=== PATIENT | female | born 1960 | race Caucasian/White ===

== ENCOUNTER 2016-08-13 10:17 | Emergency (ER) | payer SELFPAY ==
[~2016-08-13] VITALS: Ht 167.6 cm; Wt 62.6 kg
[2016-08-13 10:17] VITALS: Ht 167.6 cm; Wt 62.6 kg
[~2016-08-13 10:17] MED LIST: ARIP5TAB10 PO; CLON-202 PO; CLOP75TA33 PO; CYAN10009 PO; HYDR-4246 PO; TRAZ-173 PO; VORT5TAB PO
[2016-08-13] MEDS ORDERED: NITROGLYCERIN 0.4 MG SUBLINGUAL TABLET SL PRN (10:30)
[2016-08-13 10:34] LABS: HCT - HEMATOCRIT 46.3 % (36-46); HGB - HEMOGLOBIN 14.7 GM/DL (12-16); MEAN CORPUSCULAR HGB 23.3 UUG (26-34); MEAN CORPUSCULAR HGB CONC(MCHC 31.7 GM/DL (31-37); MEAN CORPUSCULAR VOLUME 73.3 UM3 (80-100); MEAN PLATELET VOLUME 10.3 UM3 (9.4-12.4); RED BLOOD COUNT 6.32 M/MM3 (4.00-5.20); WBC - WHITE BLOOD COUNT 12.3 T/MM3 (4.5-11.0)
[2016-08-13 10:44] LABS: INR 0.96 (0.76-1.04); PROTHROMBIN TIME 10.5 SEC (9.31-12.49)
--- NOTE | 2016-08-13 10:45 | NUR ---
DR SERRA IN
--- NOTE | 2016-08-13 10:45 | NUR ---
PAIN NO CHANGE WITH NTG. BP DROPPED. WILL NOT REPEAT NTG
[2016-08-13] MEDS ORDERED: CLON1TAB4 PO ×2 (10:47)
[2016-08-13 10:48] LABS: ANION GAP 15 MEQ/L (5-15); BUN/CREATININE RATIO 17 RATIO (6-26); CALCIUM 9.1 MG/DL (8.4-10.2); CHLORIDE 106 MEQ/L (98-107); CO2 - CARBON DIOXIDE 25 MEQ/L (22-30); CREATININE 0.6 MG/DL (0.7-1.2); GLOMERULAR FILTRATION RATE 103; GLUCOSE 98 MG/DL (65-110); POTASSIUM 4.1 MEQ/L (3.6-5); SODIUM 146 MEQ/L (134-144)
[2016-08-13] MEDS ORDERED: CARI3CAP PO (10:48)
[2016-08-13] MEDS ORDERED: LAMO100T12 PO (10:48)
--- NOTE | 2016-08-13 10:51 | DI ---
EXAM: CHEST 1 VIEW LOCATION OF DICTATION: [facility] HISTORY: ITS.REASON: chest pain COMPARISON: March 17, 2016 FINDINGS: The heart size is normal. The mediastinal configuration is within normal limits. There are no consolidating opacities or pleural effusions. There is no pneumothorax. The osseous structures are within normal limits for the patient's age. IMPRESSION: No acute cardiopulmonary abnormalities demonstrated. .
[2016-08-13 11:00] LABS: PROBNP 69 PG/ML (0-175)
--- NOTE | 2016-08-13 11:07 | ERPDOC ---
Departure Disposition Decision Date: August 13, 2016 Disposition Decision Time: 13:36 Disposition: 01 DISCHARGED HOME, SELF-CARE Impression Impression Impression: Primary Impression: Atypical chest pain Severity: Mild Condition: Improved Seen By: Physician only Referrals: MIKAYLA DIANE APRN (Family) 1 Day LAMONT QUINTANILLA MD call for appointment Patient Instructions: Chest Pain (ED), Chest Wall Pain (ED), Costochondritis ( ED), Noncardiac Chest Pain (ED) Problems/Meds/Labs Reviewed?: Yes Medications reviewed and manag: Yes Follow up care ordered?: Yes Mental Status: Alert, Oriented HPI - Chest Pain General Chief Complaint: Chest Pain Stated Complaint: CP Time Seen by Provider: 11:05 Source: patient (Patient presents to the ER with chest pain, which apparently began 2 hours prior to ER arrival. Patient also reports similar pain last night. ), EMS (Administered 2mg Morphine and (2) ) Exam Limitations: no limitations HPI - Chest Pain Occurred At: home Onset/Timing: Changing over time Duration: 12-24 hrs Pain/Severity Scale: Now: 8/10, Worst: 10/10 Activities at Onset/Context: rest Location: anterior R Quality: sharp Modifying Factors: IMPROVES WITH: morphine, other (Fentanyl), WORSE WITH: nitroglycerin Associated Symptoms: denies symptoms Chest Pain Radiation: no radiation Nitro Today/Relief: 0.4 mg x 2, provided by EMS Aspirin Treatment Today: 325 mg x 1, provided by EMS Prior Chest Pain/Cardiac Leeann: no prior chest pain Hx of Similar Symptoms: Yes Allergies: Coded Allergies: bupropion (Verified Allergy, Intermediate, HIVES, 08/13/16) adhesive tape (Verified Adverse Reaction, Intermediate, BLISTERS, 08/13/16) aspirin (Verified Adverse Reaction, Unknown, VOMITING, 08/13/16) Past History Past Medical History Metabolic: hypercholesterolemia, hypertension GI: GERD, ulcers Female: endometriosis Neurological: CVA, TIA Musculoskeletal: back pain, neck pain Hematologic: other Psychological: anxiety, depression Surgical History General: appendix, back, gallbladder, neck, tonsils Reproductive/: , hysterectomy Family History Family PMH: FOUND: COPD, cancer Vaccines Hx Influenza Vaccination: Yes (JANUARY 2016) Hx Pneumococcal Vaccination: No Social History Substance Use Type: does not use Alcohol Intake: none Housing: house Advance Directives: Yes Full Code Record Review Pertinent history updated: Yes Review of Systems Constitutional Constitutional: DENIES: chills, fever Eyes Lids/Accessories: DENIES: erythema, swelling ENMT Ears: DENIES: erythema, pain Balance: DENIES: ataxia, vertigo Sinuses: DENIES: congestion, rhinorrhea Mouth/Throat: DENIES: sore throat Cardiovascular Cardiac: chest pain, DENIES: dyspnea on exertion, orthopnea Rhythm/Rate: DENIES: tachycardia Pulmonary Respiratory: DENIES: cough, dyspnea, sputum GI Upper Abdomen: DENIES: nausea, pain, vomiting General: DENIES: dysuria Musculoskeletal General: DENIES: cramps, pain, weakness Integumentary Skin: DENIES: color change, itching, rash Neurological General: DENIES: ataxia, change in strength, headache, numbness, poor coordination, seizures, syncope, vertigo, weakness Psychiatric Psychiatric: DENIES: anxiety, depression, nervousness Hematologic/Lymphatic Hematologic/Lymphatic: DENIES: anemia Allergic/Immunological Allergic/Immunoligical: DENIES: sneezing All other Systems All Other Systems: Reviewed and Negative Physical Exam General General Nourishment: well nourished, well developed, appears stated age, adult General Body Habitus: well groomed Vitals and Pain First Documented Vital Signs Date Time Temp Pulse Resp B/P Pulse Ox O2 Delivery O2 Flow Rate FiO2 08/13/16 10:17 98.6 75 16 118/57 97 Room Air Weight: Kilograms: Height (feet): 5 Height (inches): 6.00 Triage Pain Scale: RN VS reviewed by Provider: Yes Eyes (brief) Eyes Brief: found: EOMI, PERRL ENMT (brief) ENMT Brief: FOUND: mucosa moist Neck (brief) Neck: FOUND: trachea midline, NOT FOUND: tenderness, tracheal deviation Respiratory (brief) Respiratory: FOUND: clear all torres, equal bilaterally, tenderness (right anterior chest wall with palpation, deep inhalation and cough) Cardiovascular (brief) Cardiac: FOUND: regular rate, regular rhythm Capillary Refill: <2 sec Pulses: all distal extremities Abdomen (brief) Abdominal Brief: FOUND: bowel normo active x4, soft, NOT FOUND: tender Lymphatic (brief) Lymphatic Brief: NOT FOUND: adenopathy Musculoskeletal (brief) Musculoskeletal Brief: NOT FOUND: spasm, tenderness Integumentary (brief) Integumentary Brief: FOUND: pink, warm Neurologic (brief) Neurological Brief: FOUND: CN w/o gross def to obs, gait w/o gross def to obs, motor-no gross deficits, sensory-no gross deficits, NOT FOUND: ataxia Psychiatric (brief) Psychiatric Brief: FOUND: alert, attentive, normal affect, oriented Differential Diagnoses Considering: Acute [place], Anxiety/Panic, Angina, Biliary Colic, Costochondritis, GERD, Pericarditis, Pleurisy, Pulmonary Edema, Rib Fracture, Other Progress Results/Orders Orders Procedure Category Date Status Time Cbc W/Auto LAB 08/13/16 Complete Diff-Reflex Manual 10:27 Bmp - Basic Metabolic LAB 08/13/16 Complete Panel 10:27 Probnp LAB 08/13/16 Complete 10:27 Troponin I W LAB 08/13/16 Complete Hemolysis Index 10:27 INR LAB 08/13/16 Complete 10:27 EKG EKG 08/13/16 Taken 10:27 Chest 1 View RAD 08/13/16 Resulted 10:27 Iv Lock (Ed Only) EDM 08/13/16 Transmitted 10:27 Nitroglycerin PHA 08/13/16 Complete (Nitrostat) 10:30 Fentanyl (Fentanyl) PHA 08/13/16 Complete 11:30 Troponin I W LAB 08/13/16 Complete Hemolysis Index EKG EKG 08/13/16 Taken Lab Results Laboratory Tests Test 08/13/16 10:26 08/13/16 12:49 White Blood Count 12.3T/MM3 Red Blood Count 6.32M/MM3 Hemoglobin 14.7GM/DL Hematocrit 46.3% Mean Corpuscular Volume 73.3UM3 Mean Corpuscular Hemoglobin 23.3UUG Mean Corpuscular Hemoglobin Concent 31.7GM/DL RDW Standard Deviation 47.6FL Platelet Count 546T/MM3 Mean Platelet Volume 10.3UM3 Immature Granulocyte % (Auto) % Neutrophils (%) (Auto) % Lymphocytes (%) (Auto) % Monocytes (%) (Auto) % Eosinophils (%) (Auto) % Basophils (%) (Auto) % Absolute Immature Granulocyte (auto T/MM3 Absolute Neutrophils (auto) T/MM3 Absolute Lymphocytes (auto) T/MM3 Absolute Monocytes (auto) T/MM3 Absolute Eosinophils (auto) T/MM3 Absolute Basophils (auto) T/MM3 Neutrophils % (Manual) 54.0% Lymphocytes % (Manual) 32.0% Monocytes % (Manual) 9.0% Eosinophils % (Manual) 3.0% Basophils % (Manual) 2.0% Absolute Neutrophils (Manual) 6.6T/MM3 Lymphocytes # (Manual) 3.9T/MM3 Monocytes # (Manual) 1.1T/MM3 Eosinophils # (Manual) 0.4T/MM3 Basophils # (Manual) 0.2T/MM3 Red Cell Morphology Comment Normal Prothromb Time International Ratio 0.96 Turbidity < 20 Sodium Level 146MEQ/L Potassium Level 4.1MEQ/L Chloride Level 106MEQ/L Carbon Dioxide Level 25MEQ/L Anion Gap 15MEQ/L Blood Urea Nitrogen 10.0MG/DL Creatinine 0.6MG/DL Glomerular Filtration Rate Calc 103 BUN/Creatinine Ratio 17RATIO Glucose Level 98MG/DL Calculated Osmolality 280MOSM/KG Calcium Level 9.1MG/DL Icterus Index < 2 Troponin I < 0.012ng/ml < 0.012ng/ml WH-Ajh-M-Type Natriuretic Peptide 69PG/ML Chemistry Specimen Hemolysis 29 < 15 Medications Current ED Medications Nitroglycerin (Nitrostat) 0.4 mg Q5MIN PRN SL CHEST PAIN Last administered on 10:36; Start 08/13/16 at 10:30; Stop 08/13/16 at 14:34; Status DC Fentanyl (Fentanyl) 25 mcg O ONCE IV Last administered on 08/13/16 11:32; Start 08/13/16 at 11:30; Stop 08/13/16 at 11:31; Status DC Progress Progress Patient is feeling better following medications and is wanting to go home. Patient to follow with her PCP and Dr. Quintanilla, returning to the ER as needed EKG EKG #1: Rate: 60-100 Rhythm: sinus [place]: right QRS: RBBB (Incompleter) Intervals: normal ST/T: normal Interpreted by: signing physician EKG #2: Rate: 60-100 Rhythm: sinus [place]: right QRS: RBBB (Incomplete) Intervals: normal ST/T: normal Interpreted by: signing physician EKG ScImage/Picomm EKG interpreted in ScImage/Pic: No Consult/PCP Consult/PCP #1: Physician Contacted: Dr. Bailey Time Called: 12:50 ([id number]) Time of first response: 13:05 Type of discussion: Phone Consult/PCP Discussion Details Discussed patient evaluation, labs and EKG Comments Contact Dr. Quintanilla Consult/PCP #2: Physician Contacted: Dr. Quintanilla Time Called: 13:15 Time of first response: 13:20 Type of discussion: Phone Consult/PCP Discussion Details Discussed patient examination, labs, EKG, and CXR I spoke with CA Umana Comments Rule out in the ER Will follow as an outpatient Xray Xray : Reason for Exam: Chest Pain Xray: CXR Portable Interpretation: Normal, Reviewed Written Report LIVE SERRA DO August 13, 2016 11:07
[2016-08-13 11:08] LABS: BASOPHILS # (MANUAL) 0.2 T/MM3 (0-0.2); EOSINOPHILS # (MANUAL) 0.4 T/MM3 (0-0.5); LYMPHOCYTES # (MANUAL) 3.9 T/MM3 (1-4.8); MONOCYTES # (MANUAL) 1.1 T/MM3 (0-0.8); NEUTROPHILS #(MANUAL)-ABSOLUTE 6.6 T/MM3 (1.8-7.7); TOTAL CELLS COUNTED 100 %
[2016-08-13] MEDS ORDERED: FENTANYL 100mcg/2ml INJECTION IV ONE (11:30)
--- NOTE | 2016-08-13 12:58 | NUR ---
REPORT TO ERLINDA REYEZ
[2016-08-13 13:54] VITALS: BP 105/51; PULSE 67; RESP 22; TEMP 98.6; O2SAT 94
--- NOTE | 2016-08-13 13:54 | NUR ---
DISMISSAL FEELING BETTER. DISCHARGED AMB W SISTER
== END 2016-08-13 13:54 | disposition home or self-care (01) ==
LOC: ED 10:17
DX: R07.89 Other chest pain (principal); I10 Essential (primary) hypertension; F17.200 Nicotine dependence, unspecified, uncomplicated
CPT/HCPCS: 36415; 80048; 83880; 84484; 85025; 85610; 93005

== ENCOUNTER 2016-09-01 20:15 | Emergency (ER) | payer SELFPAY ==
[~2016-09-01] VITALS: Ht 167.6 cm; Wt 59.0 kg
[~2016-09-01 20:15] MED LIST changes: -ARIP5TAB10 PO; +CARI3CAP PO; -CLON-202 PO; +CLON1TAB4 PO; -CYAN10009 PO; -HYDR-4246 PO; +LAMO100T12 PO; -VORT5TAB PO
[2016-09-01 20:22] VITALS: BP 154/68; PULSE 78; RESP 12; TEMP 97.7; O2SAT 98; Ht 167.6 cm; Wt 59.0 kg
--- NOTE | 2016-09-01 20:39 | ERPDOC ---
Departure Disposition Decision Date: September 01, 2016 Disposition Decision Time: 23:21 Disposition: 01 DISCHARGED HOME, SELF-CARE Impression Impression Impression: Primary Impression: Depression Depression Type: major depressive disorder Major depression recurrence: recurrent Active/Remission status: currently active Major depression episode severity: moderate Qualified Codes: F33.1 - Major depressive disorder, recurrent, moderate Severity: Moderate Condition: Stable Seen By: Mid-level only Referrals: MIKAYLA DIANE APRN (Family) Patient Instructions: Depression (ED) Problems/Meds/Labs Reviewed?: Yes Medications reviewed and manag: Yes Additional Instructions: Please follow up on Friday with [facility] or other psychiatric facility for help with your depression. If at any time you feel unsafe to yourself then please return to ER for reevaluation. Follow up care ordered?: Yes Mental Status: Alert HPI - Psychosocial General Chief Complaint: Suicide Ideation/Attempt Stated Complaint: SUICIDAL THOUGHTS Time Seen by MD: 20:30 Source: patient, family Exam Limitations: no limitations HPI - Psychosocial Initial Comments She has a history of depression and anxiety. She has been treated as an inpatient for this in the past. Has felt like her depression has been getting worse over the last few weeks. Today she had told her daughters that she was feeling like she wanted to kill herself. Has never had an attempt in the past. Denies any use of ETOH or drugs today. Occurred At: home Onset: Gradual Duration: other (chronic, worse over the last few weeks) Severity: moderate Associated Symptoms: anxiety, suicidal ideation, DENIES: impaired concentration , ingestion, injury, insomnia Hx of Similar Symptoms: No Allergies: Coded Allergies: bupropion (Verified Allergy, Intermediate, HIVES, 09/01/16) adhesive tape (Verified Adverse Reaction, Intermediate, BLISTERS, 09/01/16) Past History Past Medical History Metabolic: hypercholesterolemia, hypertension GI: GERD, ulcers Female: endometriosis Neurological: CVA, TIA Musculoskeletal: back pain, neck pain Hematologic: other Psychological: anxiety, depression Surgical History General: appendix, back, gallbladder, neck, tonsils Reproductive/: , hysterectomy Family History Family PMH: FOUND: COPD, cancer Vaccines Hx Influenza Vaccination: Yes (JANUARY 2016) Hx Pneumococcal Vaccination: No Social History Substance Use Type: does not use Alcohol Intake: none Housing: house Advance Directives: Yes Full Code Review of Systems Constitutional Constitutional: DENIES: chills, dizziness, fatigue, fever, weakness ENMT Ears: DENIES: drainage, pain Sinuses: DENIES: congestion, rhinorrhea Mouth/Throat: DENIES: painful swallowing, scratchy throat, sore throat Cardiovascular Cardiac: DENIES: chest pain, orthopnea Rhythm/Rate: DENIES: irregular beat, palpitations Pulmonary Respiratory: DENIES: cough, dyspnea, sputum, tachypnea GI Upper Abdomen: DENIES: nausea, pain, vomiting Lower Abdomen: DENIES: constipation, diarrhea, pain Integumentary Skin: DENIES: rash Neurological General: DENIES: headache, numbness, tingling, weakness Physical Exam General General Nourishment: well nourished, well developed, appears stated age, no acute distress, adult General Body Habitus: well groomed Vitals and Pain First Documented Vital Signs Date Time Temp Pulse Resp B/P Pulse Ox O2 Delivery O2 Flow Rate FiO2 09/01/16 20:22 97.7 78 12 154/68 98 Room Air Weight: Kilograms: Height (feet): 5 Height (inches): 6.00 Triage Pain Scale: RN VS reviewed by Provider: Yes Normal Exams: Eyes: Pupils are PERRLA w/ EOMI, No scleral icterus, irritation, or foreign bodies noted ENMT: No facial trauma, nasal exudates, pharyngeal erythema, or exudates are noted Neck: Full range of motion, without adenopathy, JVD, bruits or thyromegaly Chest/Resp: Clear all torres, with good airflow, and symmetry bilaterally CV: Regular rate and rhythm, without murmur or gallop, Pulses 2+ all extremities, capillary refill, <2 seconds all ext., no pedal edema noted Abdomen: Bowel sounds positive, soft, non-tender, non-distended, no hepatosplenomegaly, masses or bruits noted Lymphatic: No lymphadenopathy, or lymphedema noted Integumentary: No rashes, hives, or bruising noted Neurologic: Patient is alert, and oriented Psychiatric: Patient exhibits, appropriate attention, emotion and affect Differential Diagnoses Considering: Anxiety, Depression, Natalia, Suicidal Ideation Progress Results/Orders Orders Procedure Category Date Status Time Drug Screen LAB 09/01/16 Complete Urine-Test At [facility] [place] 20:36 Ethanol LAB 09/01/16 Complete Salicylate LAB 09/01/16 Complete Acetaminophen LAB 09/01/16 Complete Cbc W/Auto LAB 09/01/16 Complete Diff-Reflex Manual Bmp - Basic Metabolic LAB 09/01/16 Complete Panel Ua, Dip Wreflex LAB 09/01/16 Complete Microsc & Cytotechnologist 20:36 Lab Results Laboratory Tests Test 09/01/16 20:52 09/01/16 20:58 09/01/16 21:20 White Blood Count 13.1T/MM3 Red Blood Count 6.06M/MM3 Hemoglobin 14.2GM/DL Hematocrit 44.8% Mean Corpuscular Volume 73.9UM3 Mean Corpuscular Hemoglobin 23.4UUG Mean Corpuscular Hemoglobin Concent 31.7GM/DL RDW Standard Deviation 49.3FL Platelet Count 599T/MM3 Mean Platelet Volume 10.5UM3 Immature Granulocyte % (Auto) % Neutrophils (%) (Auto) % Lymphocytes (%) (Auto) % Monocytes (%) (Auto) % Eosinophils (%) (Auto) % Basophils (%) (Auto) % Absolute Immature Granulocyte (auto T/MM3 Absolute Neutrophils (auto) T/MM3 Absolute Lymphocytes (auto) T/MM3 Absolute Monocytes (auto) T/MM3 Absolute Eosinophils (auto) T/MM3 Absolute Basophils (auto) T/MM3 Neutrophils % (Manual) 60.0% Lymphocytes % (Manual) 31.0% Reactive Lymphocytes % 2.0% Monocytes % (Manual) 2.0% Eosinophils % (Manual) 3.0% Basophils % (Manual) 2.0% Absolute Neutrophils (Manual) 7.9T/MM3 Lymphocytes # (Manual) 4.1T/MM3 Reactive Lymphocytes # 0.3T/MM3 Monocytes # (Manual) 0.3T/MM3 Eosinophils # (Manual) 0.4T/MM3 Basophils # (Manual) 0.3T/MM3 Red Cell Morphology Comment Normal Turbidity < 20 Sodium Level 148MEQ/L Potassium Level 3.8MEQ/L Chloride Level 107MEQ/L Carbon Dioxide Level 28MEQ/L Anion Gap 13MEQ/L Blood Urea Nitrogen 9.0MG/DL Creatinine 0.7MG/DL Glomerular Filtration Rate Calc 87 BUN/Creatinine Ratio 13RATIO Glucose Level 105MG/DL Calculated Osmolality 283MOSM/KG Calcium Level 9.4MG/DL Icterus Index < 2 Chemistry Specimen Hemolysis < 15 Salicylates Level < 1.0MG/DL Acetaminophen Level < 10UG/ML Alcohol, Quantitative <10MG/DL Urine Collection Type Cleancatch-midstream Urine Color Yellow Urine Turbidity Clear Urine pH 5.0 Urine Specific [place] 1.005 Urine Protein Negative Urine Glucose (UA) Negative Urine Ketones Negative Urine Blood Negative Urine Nitrite Negative Urine Bilirubin Negative Urine Urobilinogen NormalEU/DL Urine Leukocyte Esterase Negative Urinalysis Comment Microscopic not ind. Urine Opiates Screen NegativeNG/ML Urine Oxycodone Screen NegativeNG/ML Urine Methadone Screen NegativeNG/ML Urine Propoxyphene Screen NegativeNG/ML Urine Barbiturates Screen NegativeNG/ML Urine Tricyclic Antidepressants NegativeNG/ML Urine Phencyclidine Screen NegativeNG/ML Urine Amphetamines Screen NegativeNG/ML Urine Methamphetamines Screen NegativeNG/ML Urine Benzodiazepines Screen NegativeNG/ML Urine Cocaine Screen NegativeNG/ML Urine Cannabinoids Screen NegativeNG/ML Lab Scanned Report REFERENCE [id number] Progress Progress 2144- Did speak with [facility] RN who will come and screen patient for admission. 2154- Generation RN in unit for evaluation. 2323- Admission to [facility] would be at a private pay rate. They prefer not to take on that debt. I did talk with Zenia and her sisters who are with her today. She is going to go home with her sister Liudmila smith and she will stay with her all the time until Friday. Then they will try for admission to [facility] or outpatient treatment. I did offer to try to admit luis to [facility] or other facility. Liudmila states that she has worked in social work and given that it is a holiday weekend they would gain not much from admission today other than the debt as she would not be able to see a psychiatrist until Friday. She is going to take Zenia's medications from her and dispense them to her and they both state that they are comfortable and feel safe going home luis. They will return to ER with any change in status. JAZ WATKINS APRN September 01, 2016 20:39
--- NOTE | 2016-09-01 20:55 | NUR ---
BR PT AMBULATES TO [facility] AT THIS TIME ACCOMPANIED BY LAB TO PROVIDE URINE SAMPLE.
[2016-09-01 21:12] LABS: HCT - HEMATOCRIT 44.8 % (36-46); HGB - HEMOGLOBIN 14.2 GM/DL (12-16); MEAN CORPUSCULAR HGB 23.4 UUG (26-34); MEAN CORPUSCULAR HGB CONC(MCHC 31.7 GM/DL (31-37); MEAN CORPUSCULAR VOLUME 73.9 UM3 (80-100); MEAN PLATELET VOLUME 10.5 UM3 (9.4-12.4); RED BLOOD COUNT 6.06 M/MM3 (4.00-5.20); WBC - WHITE BLOOD COUNT 13.1 T/MM3 (4.5-11.0)
[2016-09-01 21:14] LABS: ACETAMINOPHEN < 10 UG/ML (10-30); ANION GAP 13 MEQ/L (5-15); BUN/CREATININE RATIO 13 RATIO (6-26); CALCIUM 9.4 MG/DL (8.4-10.2); CHLORIDE 107 MEQ/L (98-107); CO2 - CARBON DIOXIDE 28 MEQ/L (22-30); CREATININE 0.7 MG/DL (0.7-1.2); ETHANOL <10 MG/DL (<10); GLOMERULAR FILTRATION RATE 87; GLUCOSE 105 MG/DL (65-110); POTASSIUM 3.8 MEQ/L (3.6-5); SALICYLATE < 1.0 MG/DL (2-20); SODIUM 148 MEQ/L (134-144)
[2016-09-01 21:16] LABS: AMPHETAMINE SCREEN,URINE NEGATIVE; BARBITURATE SCREEN,URINE NEGATIVE; BENZODIAZEPINES SCREEN,URINE NEGATIVE; CANNABINOID SCREEN,URINE NEGATIVE; COCAINE SCREEN,URINE NEGATIVE; METHADONE SCREEN, URINE NEGATIVE; METHAMPHETAMINE SCREEN, URINE NEGATIVE; OPIATE SCREEN,URINE NEGATIVE; PHENCYCLIDINE SCREEN,URINE NEGATIVE; TRICYCLIC ANTIDEPRESSANT,URINE NEGATIVE
[2016-09-01 21:26] LABS: BASOPHILS # (MANUAL) 0.3 T/MM3 (0-0.2); EOSINOPHILS # (MANUAL) 0.4 T/MM3 (0-0.5); LYMPHOCYTES # (MANUAL) 4.1 T/MM3 (1-4.8); MONOCYTES # (MANUAL) 0.3 T/MM3 (0-0.8); NEUTROPHILS #(MANUAL)-ABSOLUTE 7.9 T/MM3 (1.8-7.7); REACTIVE LYMPHOCYTES # 0.3 T/MM3 (0-0); TOTAL CELLS COUNTED 100 %
[2016-09-01 21:31] LABS: COLOR,URINE YELLOW (YELLOW)
[2016-09-01 21:32] LABS: BLOOD, URINE NEGATIVE (NEGATIVE); LEUKOCYTE ESTERASE ,URINE NEGATIVE (NEGATIVE); NITRITE,URINE NEGATIVE (NEGATIVE); UROBILINOGEN,URINE NORMAL (NORMAL)
--- NOTE | 2016-09-01 23:13 | NUR ---
UPDATE GENERATIONS NURSE IN ROOM TO DISCUSS DETAILS OF COST AND ADMISSION WITH FAMILY.
--- NOTE | 2016-09-01 23:34 | NUR ---
DEPART PT IS DISCHARGED AT THIS TIME, INSTRUCTIONS ARE REVIEWED AND UNDERSTANDING IS VOICED. PT LEAVES ACCOMPANIED BY HER DAUGHTER AND SISTER AT THIS TIME. THE PT WILL STAY AT HER DAUGHTER'S HOME TONIGHT.
== END 2016-09-01 23:34 | disposition home or self-care (01) ==
LOC: ED 20:15
DX: R45.851 Suicidal ideations (principal); F33.1 Major depressive disorder, recurrent, moderate; F41.8 Other specified anxiety disorders
CPT/HCPCS: 36415; 80048; 80306; 80307; 81003; 85025